=== PATIENT | female | born 1975 | race Caucasian/White ===

== ENCOUNTER 2018-11-27 11:32 | Emergency (ER) | payer SELFPAY ==
[~2018-11-27 11:32] MED LIST: ISOVUE-370 76%-LOCM 1 ML ONE
[2018-11-27 12:03] LABS: #Lymphocytes 2.1 thou/uL (1.20-3.40); #Monocytes 0.7 thou/uL (0.11-0.59); #Neutrophils 6.3 thou/uL (1.40-6.50); %Basophils 0.4 % (0.0-1.0); %Eosinophils 0.2 % (0.0-10.0); %Monocytes 7.3 % (0.0-10.0); %Neutrophils 69.1 % (42.0-75.0); Hemoglobin 15.2 g/dL (12.0-16.0); Mean Corpuscular HGB CONC 33.1 g/dL (32.0-36.0); Mean Corpuscular Hemoglobin 30.2 pg (27.0-31.0); Mean Corpuscular Volume 91.1 fL (78.0-98.0); Mean Platelet Volume 6.9 fL (7.4-10.4); Platelet Count 396 thou/uL (130-400); RBC Distribution Width 11.8 % (11.5-14.5); Red Blood Cell (RBC) Count 5.03 mill/uL (4.20-5.40); White Blood Cell (WBC) Count 9.1 thou/uL (4.8-10.8)
[2018-11-27 12:25] LABS: ALT (SGPT) 21 U/L (8-55); AST (SGOT) 17 U/L (5-34); Albumin 4.2 g/dL (3.5-5.0); Alkaline Phosphatase 142 U/L (40-150); Anion Gap 11 mmol/L (10-20); BUN (Urea Nitrogen) 5 mg/dL (7.0-18.7); Bilirubin, Total 0.3 mg/dL (0.2-1.2); CK (CPK) 101 U/L (29-168); Calc. Creatinine Clearance 0 mL/min (70-130); Calcium 9.6 mg/dL (7.8-10.44); Carbon Dioxide 26 mmol/L (22-29); Chloride 100 mmol/L (98-107); Estimated GFR-MDRD 83; Globulin 3.3 g/dL (2.4-3.5); Glucose 84 mg/dL (70-105); Potassium 3.1 mmol/L (3.5-5.1); Protein, Total 7.5 g/dL (6.0-8.3); Sodium 134 mmol/L (136-145)
--- NOTE | 2018-11-27 12:30 | RAD ---
CHEST ONE VIEW: HISTORY: Mid sternal chest pain. COMPARISON: Radiograph from 2008. FINDINGS: Exam is mildly limited due to rightward patient rotation. Within this limitation, the lungs are florencia r. No pneumothorax. No effusion. No acute osseous abnormality. IMPRESSION: No acute intrathoracic abnormality. POS: [facility]
[2018-11-27] MEDS ORDERED: Aspirin Chewable 81 MG TAB ONE (12:32)
[2018-11-27] MEDS ORDERED: Nitroglycerin 0.4 MG TAB 1 EACH ONE (12:32)
[2018-11-27 14:15] LABS: BHCG - Serum Negative (NEGATIVE); Pregs Control Background? CLEAR/WHITE (CLR/WHITE); Pregs Control Bar Appear? YES (CONTROL BAR)
[2018-11-27] MEDS ORDERED: Ketorolac Tromethamine 30 MG/ML VIAL ONE (14:56)
--- NOTE | 2018-11-27 15:38 | CT ---
CT ANGIOGRAM CHEST WITH CONTRAST: HISTORY: Tachycardia, elevated D-dimer, and chest pain. COMPARISON: Radiograph of same day. FINDINGS: CT angiogram chest was performed after the intravenous administration of contrast. Three-D rendering is provided. Thyroid is unremarkable. No proximal segmental pulmonary arterial filling defect. Ex am is limited due to delayed phase of contrast. Heart size is normal. No pericardial effusion. There is a hypodensity hepatic segment 8, likely a c yst, incompletely evaluated. The remainder of the upper abdomen is unremarkable. Lungs are clear. No focal airspace consolidation, pneumothorax, or effusion. No suspicious pulmonar y nodule. No displaced rib fracture. No suspicious osteolytic or osteoblastic lesions. Sternum and manubrium are intact. No thoracic spi ne compression fracture. IMPRESSION: Normal exam. No proximal segmental pulmonary artery filling defect or other acute intrathoracic abno rmality. POS: [facility]
== END 2018-11-27 15:04 | disposition home or self-care (01) ==
LOC: ERS 11:32
DX: R07.89 Other chest pain (principal)
CPT/HCPCS: 71045; 71275; 80053; 82550; 84484; 84703; 85025; 85379; 93005; 94760; 96361; 96374; J1885; Q9966

== ENCOUNTER 2020-06-03 07:28 | Emergency (ER) | payer OTHER, SELFPAY ==
[2020-06-03 17:22] LABS: SARS-CoV-2 MS2 Positive; SARS-CoV-2 N Gene Negative; SARS-CoV-2 S Gene Negative; SARS-CoV-2 by NAA Not Detected (NotDetected); SARS-CoV-2 orf1ab Negative
--- NOTE | 2020-06-04 07:07 | RAD ---
Portable frontal chest radiograph: 06/03/2020 COMPARISON: 11/27/2018 HISTORY: Cough FINDINGS: Lungs are clear. Heart and mediastinal contours appear within normal limits. IMPRESSION: No acute findings.
== END 2020-06-03 08:44 | disposition home or self-care (01) ==
LOC: ERS 07:28
DX: R05 Cough (principal); Z20.828 Contact with and (suspected) exposure to other viral communicable diseases; F32.9 Major depressive disorder, single episode, unspecified
CPT/HCPCS: 71045; 87635; U0003

== ENCOUNTER 2023-09-22 15:59 | Outpatient (CLI) | payer OTHER | END 2023-09-22 16:00 | disposition home or self-care (01) | LOC: BICCT 15:59 | PROVIDERS: ATTEND Internal Medicine Sleep Medicine | DX: R05.3 Chronic cough (principal); I51.89 Other ill-defined heart diseases | CPT/HCPCS: 71260 ==